=== PATIENT | female | born 1980 | race American Indian/Alaskan Native ===

== ENCOUNTER 2017-03-19 00:37 | Emergency (ER) | payer OTHER ==
[2017-03-19] MEDS ORDERED: CATAPRES PO ONE (01:08)
[2017-03-19] MEDS ORDERED: CATAPRES ONE (01:08)
[2017-03-19 01:40] LABS: Basophils % (Auto) 0.8 % (0.0-1.8); Eosinophils % (Auto) 2.7 % (0.0-4.3); Hematocrit 36.5 % (30.3-42.9); Hemoglobin 12.1 gm/dl (10.1-14.3); Mean Corpuscular HGB Conc 33 % (30-34); Mean Corpuscular Hemoglobin 31 pg (28-32); Mean Corpuscular Volume 93 fl (79-97); Platelet Count 280 K/mm3 (140-440); Red Blood Count 3.93 M/mm3 (3.65-5.03); Red Cell Distribution Width 14.2 % (13.2-15.2); White Blood Count 8.5 K/mm3 (4.5-11.0)
[2017-03-19 01:58] LABS: Anion Gap 19 mmol/L; BUN/Creatinine Ratio 19; Blood Urea Nitrogen 13 mg/dL (7-17); Calcium 8.8 mg/dL (8.4-10.2); Carbon Dioxide 23 mmol/L (22-30); Chloride 103.8 mmol/L (98-107); Glucose 85 mg/dL (65-100); Potassium 3.5 mmol/L (3.6-5.0); Sodium 142 mmol/L (137-145)
[2017-03-19 02:05] LABS: Bilirubin,Urine NEG (Negative); Blood,Urine NEG (Negative); Ketones,Urine NEG (Negative); Leukocyte Esterase,Urine NEG (Negative); Mucus,Urine FEW /HPF; Nitrite,Urine NEG (Negative); Protein,Urine <15 mg/dL mg/dL (Negative); Urobilinogen,Urine < 2.0 mg/dL (<2.0)
--- NOTE | 2017-03-19 04:44 | Cat Scan Report ---
FINAL REPORT PROCEDURE: CT HEAD/BRAIN WO CON TECHNIQUE: Computerized tomography of the head was performed without contrast material. HISTORY: ADRIAN COMPARISON: No prior studies are available for comparison. FINDINGS: Skull and scalp: Normal. Paranasal sinuses: Normal. Ventricles and subarachnoid spaces: Normal. Cerebrum: No evidence of hemorrhage, acute infarction or mass . Cerebellum and brainstem: No evidence of hemorrhage, acute infarction or mass. Vasculature: Normal. Comments: None. IMPRESSION: Normal Examination
--- NOTE | 2017-03-19 09:32 | Emergency Department Report ---
Chief Complaint: Chest Pain Stated Complaint: CHEST PAIN, L SIDED NUMBNESS Time Seen by Provider: 03/19/17 09:29 - HPI History of Present Illness: PT c/o chest pain since yesterday. PT also reports headache. PT states she has a hx of htn and has been compliant with her bp medication - ROS Review of Systems: + chest pian + headache - sob - Exam Vital Signs: Vital Signs 03/19/17 00:51 Temperature 98.6 F Pulse Rate 95 H Respiratory 18 Rate Blood Pressure 216/147 O2 Sat by Pulse 100 Oximetry Physical Exam: PT is alert and appropriate no focal weakness gcs 15 MSE screening note: Focused history and physical exam performed. Due to findings the following was ordered: ED Medical Decision Making - Lab Data Result diagrams: 03/19/17 01:04 03/19/17 01:04 ED Disposition for MSE Condition: Stable Referrals: PRIMARY CARE, [Primary Care Provider] - 3-5 Days
--- NOTE | 2017-03-19 09:48 | XRay Report ---
ROUTINE CHEST, TWO VIEWS: Hypertension; chest pain. PA and lateral views demonstrate the heart and mediastinal contour to be of normal size and shape. The lungs are clear and fully expanded and the soft tissues and bony structures are normal. No interval change to prior study of September 2012. IMPRESSION: Normal study.
--- NOTE | 2017-03-19 11:51 | Emergency Department Report ---
ED Chest Pain HPI - General Chief Complaint: Chest Pain Stated Complaint: CHEST PAIN, L SIDED NUMBNESS Time Seen by Provider: 03/19/17 09:29 Source: patient, RN notes reviewed, old records reviewed Mode of arrival: Ambulatory Limitations: No Limitations - History of Present Illness Initial Comments: This is a 36-year-old female. The patient is previously unknown to this provider. She reports she does not have a primary care doctor, reports that she is not , reports that she has not given within the past 2 months, and reports a past medical history of hypertension. She states she takes atenolol, 25 mg daily, and hydralazine, 50 mg daily. The patient presents to the ER complaining of chest pain, headache, and fingertip numbness. The chest pain started yesterday. The chest pain is not sharp or tearing, it is not sudden or maximal in onset, and it does not radiate to the back, arms or neck. The chest pain is not associated with nausea, vomiting or diaphoresis or shortness of breath. There is no leg pain, there is no leg swelling, no recent trips greater than 4 hours, no recent hospital admissions, does not take oral contraceptives, no recent cocaine use, no recent aspirin use. There is no family history of heart disease, DVT, or dissection that she is aware of. The headache is frontal and throbbing. It started last night. It was not sudden or thunderclap in nature. It did not reach maximal intensity within an hour. It is not the worst headache of her life. She reports that she gets headaches like this one to 2 times per month. She reports worse headache a few months ago, there is no neck pain or neck stiffness, there are no fevers. She describes numbness in her bilateral upper extremity fingertips. Numbness is only in the distal fingertips. It is nowhere else. MD Complaint: chest pain -: Gradual Onset: during rest Pain Location: substernal Pain Radiation: none Severity: mild Severity scale (0 -10): 7 Quality: aching Consistency: intermittent Improves With: rest Worsens With: palpation re: denies: nausea, vomting, diaphoresis, dyspnea, sense of impending doom Aspirin use within the Past 7 Days: (0) No - Related Data On Oral Contraceptives: No Previous Rx's Medication Instructions Recorded Last Taken Type Atenolol [Tenormin] 25 mg PO BID #120 tablet 03/19/17 Unknown Rx Hydralazine HCl [Apresoline TAB] 50 mg PO QDAY #90 tablet 03/19/17 Unknown Rx Allergies Allergy/AdvReac Type Severity Reaction Status Date / Time No Known Allergies Allergy Verified 12/26/13 13:55 Heart Score - HEART Score History: Slightly suspicious EKG: Non-specific Age: < 45 Risk factors: 1-2 risk factors Troponin: < normal limit HEART Score: 2 - Critical Actions Critical Actions: 0-3 pts:0.9-1.7%risk of adverse cardiac event.Candidate for discharge ED Review of Systems ROS: Stated complaint: CHEST PAIN, L SIDED NUMBNESS Other details as noted in HPI Constitutional: denies: diaphoresis, fever, weakness Eyes: denies: eye discharge ENT: denies: epistaxis Respiratory: denies: cough Cardiovascular: chest pain Gastrointestinal: denies: nausea, vomiting Genitourinary: denies: dysuria Musculoskeletal: arthralgia. denies: back pain Skin: denies: lesions Neurological: headache ED Past Medical Hx - Past Medical History Previous Medical History?: Yes Hx Hypertension: Yes Hx Congestive Heart Failure: No Hx Diabetes: No Hx Deep Vein Thrombosis: No Hx Renal Disease: No Hx Sickle Cell Disease: No Hx Seizures: No Hx Asthma: No Hx COPD: No Hx HIV: No - Surgical History Past Surgical History?: Yes Additional Surgical History: 2014 - Social History Smoking Status: Current Every Day Smoker Substance Use Type: Alcohol - Medications Home Medications: Home Medications Medication Instructions Recorded Confirmed Last Taken Type Atenolol [Tenormin] 25 mg PO BID #120 tablet 03/19/17 Unknown Rx Hydralazine HCl [Apresoline TAB] 50 mg PO QDAY #90 tablet 03/19/17 Unknown Rx ED Physical Exam - General Limitations: No Limitations General appearance: alert, in no apparent distress - Head Head exam: Present: atraumatic, normocephalic - Eye Eye exam: Present: normal appearance, PERRL, EOMI, other (visual acuity intact to finger counting, color perception, reading at a close distance). Absent: nystagmus - ENT ENT exam: Present: normal exam, normal orophraynx, mucous membranes moist, normal external ear exam - Neck Neck exam: Present: normal inspection, full ROM. Absent: tenderness, meningismus - Respiratory Respiratory exam: Present: normal lung sounds bilaterally, chest wall tenderness (there is reproducible anterior chest wall tenderness). Absent: respiratory distress, wheezes, rales, rhonchi, stridor - Cardiovascular Cardiovascular Exam: Present: regular rate, normal rhythm, normal heart sounds, other (2+ pulses noted in the bilateral upper and lower extremities.). Absent: bradycardia, tachycardia, irregular rhythm, systolic murmur, diastolic murmur, rubs, gallop - GI/Abdominal GI/Abdominal exam: Present: soft, normal bowel sounds. Absent: distended, tenderness, guarding, rebound, rigid, pulsatile mass - Extremities Exam Extremities exam: Present: normal inspection, full ROM, normal capillary refill , other (there is no palpable cord. There is negative Homans sign.). Absent: pedal edema, joint swelling, calf tenderness - Back Exam Back exam: Present: normal inspection, full ROM. Absent: tenderness, CVA tenderness (R), CVA tenderness (L), muscle spasm, paraspinal tenderness, vertebral tenderness - Neurological Exam Neurological exam: Present: alert, oriented X3, normal gait (there is no pass pointing. There is normal heel to mclean. No visual field cuts on the right confrontation. Walks with a steady gait.), other (Extraocular movements intact. Tongue midline. No facial droop. Facial sensation intact to light touch in the V1, V2, V3 distribution bilaterally. 5 and 5 strength in 4 extremities.. Sensation is intact to light touch in 4 extremities.). Absent: motor sensory deficit - Psychiatric Psychiatric exam: Present: normal affect, normal mood - Skin Skin exam: Present: warm, dry, intact, normal color. Absent: rash ED Course Vital Signs 03/19/17 03/19/17 03/19/17 00:51 01:09 09:31 Temperature 98.6 F 98.4 F Pulse Rate 95 H 95 H 69 Respiratory 18 18 Rate Blood Pressure 216/147 216/147 Blood Pressure 178/126 [Right] O2 Sat by Pulse 100 100 Oximetry 03/19/17 03/19/17 03/19/17 09:33 09:38 12:16 Temperature 98.4 F Pulse Rate 69 Respiratory 18 16 Rate Blood Pressure 178/126 178/126 Blood Pressure [Right] O2 Sat by Pulse 100 Oximetry 03/19/17 13:04 Temperature Pulse Rate 71 Respiratory 18 Rate Blood Pressure Blood Pressure 182/128 [Right] O2 Sat by Pulse 100 Oximetry - Reevaluation(s) Reevaluation #1: 03/19/17 18:52 Patient playing on a cellular telephone in the department, no distress, can follow-up as an outpatient. DEVIN score - Devin Score Age > 65: (0) No Aspirin use within the Past 7 Days: (0) No 3 or more CAD Risk Factors: (0) No 2 or more Angina events in past 24 hrs: (0) No Known CAD with more than 50% Stenosis: (0) No Elevated Cardiac Markers: (0) No ST Deviation Greater than 0.5mm: (0) No DEVIN Score: 0 ED Medical Decision Making - Lab Data Result diagrams: 03/19/17 01:04 03/19/17 01:04 Vital Signs 03/19/17 03/19/17 03/19/17 00:51 01:09 09:31 Temperature 98.6 F 98.4 F Pulse Rate 95 H 95 H 69 Respiratory 18 18 Rate Blood Pressure 216/147 216/147 Blood Pressure 178/126 [Right] O2 Sat by Pulse 100 100 Oximetry 03/19/17 09:33 Temperature 98.4 F Pulse Rate 69 Respiratory 18 Rate Blood Pressure 178/126 Blood Pressure [Right] O2 Sat by Pulse 100 Oximetry Lab Results 03/19/17 03/19/17 03/19/17 Range/Units 01:04 01:04 01:04 WBC 8.5 (4.5-11.0) K/mm3 RBC 3.93 (3.65-5.03) M/mm3 Hgb 12.1 (10.1-14.3) gm/dl Hct 36.5 (30.3-42.9) % MCV 93 (79-97) fl MCH 31 (28-32) pg MCHC 33 (30-34) % RDW 14.2 (13.2-15.2) % Plt Count 280 (140-440) K/mm3 Lymph % (Auto) 40.1 H (13.4-35.0) % [place] % (Auto) 8.3 H (0.0-7.3) % Eos % (Auto) 2.7 (0.0-4.3) % Baso % (Auto) 0.8 (0.0-1.8) % Lymph # 3.4 (1.2-5.4) K/mm3 [place] # 0.7 (0.0-0.8) K/mm3 Eos # 0.2 (0.0-0.4) K/mm3 Baso # 0.1 (0.0-0.1) K/mm3 Seg Neutrophils % 48.1 (40.0-70.0) % Seg Neutrophils # 4.1 (1.8-7.7) K/mm3 Sodium 142 (137-145) mmol/L Potassium 3.5 L (3.6-5.0) mmol/L Chloride 103.8 (98-107) mmol/L Carbon Dioxide 23 (22-30) mmol/L Anion Gap 19 mmol/L BUN 13 (7-17) mg/dL Creatinine 0.7 (0.7-1.2) mg/dL Estimated GFR > 60 ml/min BUN/Creatinine Ratio 19 % Glucose 85 (65-100) mg/dL Lactic Acid 0.90 (0.7-2.0) mmol/L Calcium 8.8 (8.4-10.2) mg/dL Troponin T < 0.010 (0.00-0.029) ng/mL NT-Pro-B Natriuret Pep (0-450) pg/mL HCG, Qual (Negative) Urine Color (Yellow) Urine Turbidity (Clear) Urine pH (5.0-7.0) Ur Specific [place] (1.003-1.030) Urine Protein (Negative) mg/dL Urine Glucose (UA) (Negative) mg/dL Urine Ketones (Negative) mg/dL Urine Blood (Negative) Urine Nitrite (Negative) Urine Bilirubin (Negative) Urine Urobilinogen (<2.0) mg/dL Ur Leukocyte Esterase (Negative) Urine WBC (Auto) (0.0-6.0) /HPF Urine RBC (Auto) (0.0-6.0) /HPF U Epithel Cells (Auto) (0-13.0) /HPF Urine Mucus /HPF 03/19/17 03/19/17 03/19/17 Range/Units 01:04 03:51 08:42 WBC (4.5-11.0) K/mm3 RBC (3.65-5.03) M/mm3 Hgb (10.1-14.3) gm/dl Hct (30.3-42.9) % MCV (79-97) fl MCH (28-32) pg MCHC (30-34) % RDW (13.2-15.2) % Plt Count (140-440) K/mm3 Lymph % (Auto) (13.4-35.0) % [place] % (Auto) (0.0-7.3) % Eos % (Auto) (0.0-4.3) % Baso % (Auto) (0.0-1.8) % Lymph # (1.2-5.4) K/mm3 [place] # (0.0-0.8) K/mm3 Eos # (0.0-0.4) K/mm3 Baso # (0.0-0.1) K/mm3 Seg Neutrophils % (40.0-70.0) % Seg Neutrophils # (1.8-7.7) K/mm3 Sodium (137-145) mmol/L Potassium (3.6-5.0) mmol/L Chloride (98-107) mmol/L Carbon Dioxide (22-30) mmol/L Anion Gap mmol/L BUN (7-17) mg/dL Creatinine (0.7-1.2) mg/dL Estimated GFR ml/min BUN/Creatinine Ratio % Glucose (65-100) mg/dL Lactic Acid (0.7-2.0) mmol/L Calcium (8.4-10.2) mg/dL Troponin T < 0.010 < 0.010 (0.00-0.029) ng/mL NT-Pro-B Natriuret Pep (0-450) pg/mL HCG, Qual Negative (Negative) Urine Color (Yellow) Urine Turbidity (Clear) Urine pH (5.0-7.0) Ur Specific [place] (1.003-1.030) Urine Protein (Negative) mg/dL Urine Glucose (UA) (Negative) mg/dL Urine Ketones (Negative) mg/dL Urine Blood (Negative) Urine Nitrite (Negative) Urine Bilirubin (Negative) Urine Urobilinogen (<2.0) mg/dL Ur Leukocyte Esterase (Negative) Urine WBC (Auto) (0.0-6.0) /HPF Urine RBC (Auto) (0.0-6.0) /HPF U Epithel Cells (Auto) (0-13.0) /HPF Urine Mucus /HPF 03/19/17 03/19/17 Range/Units 08:42 Unknown WBC (4.5-11.0) K/mm3 RBC (3.65-5.03) M/mm3 Hgb (10.1-14.3) gm/dl Hct (30.3-42.9) % MCV (79-97) fl MCH (28-32) pg MCHC (30-34) % RDW (13.2-15.2) % Plt Count (140-440) K/mm3 Lymph % (Auto) (13.4-35.0) % [place] % (Auto) (0.0-7.3) % Eos % (Auto) (0.0-4.3) % Baso % (Auto) (0.0-1.8) % Lymph # (1.2-5.4) K/mm3 [place] # (0.0-0.8) K/mm3 Eos # (0.0-0.4) K/mm3 Baso # (0.0-0.1) K/mm3 Seg Neutrophils % (40.0-70.0) % Seg Neutrophils # (1.8-7.7) K/mm3 Sodium (137-145) mmol/L Potassium (3.6-5.0) mmol/L Chloride (98-107) mmol/L Carbon Dioxide (22-30) mmol/L Anion Gap mmol/L BUN (7-17) mg/dL Creatinine (0.7-1.2) mg/dL Estimated GFR ml/min BUN/Creatinine Ratio % Glucose (65-100) mg/dL Lactic Acid (0.7-2.0) mmol/L Calcium (8.4-10.2) mg/dL Troponin T (0.00-0.029) ng/mL NT-Pro-B Natriuret Pep 73.89 (0-450) pg/mL HCG, Qual (Negative) Urine Color Yellow (Yellow) Urine Turbidity Clear (Clear) Urine pH 7.0 (5.0-7.0) Ur Specific [place] 1.024 (1.003-1.030) Urine Protein <15 mg/dl (Negative) mg/dL Urine Glucose (UA) Neg (Negative) mg/dL Urine Ketones Neg (Negative) mg/dL Urine Blood Neg (Negative) Urine Nitrite Neg (Negative) Urine Bilirubin Neg (Negative) Urine Urobilinogen < 2.0 (<2.0) mg/dL Ur Leukocyte Esterase Neg (Negative) Urine WBC (Auto) 1.0 (0.0-6.0) /HPF Urine RBC (Auto) 1.0 (0.0-6.0) /HPF U Epithel Cells (Auto) 6.0 (0-13.0) /HPF Urine Mucus Few /HPF - EKG Data -: EKG Interpreted by Wy EKG shows normal: sinus rhythm Rate: normal - EKG Data 03/19/17 12:18 EKG #1 demonstrates normal sinus, 79 beats per minute, high left ventricular voltage, borderline left axis, not morphologically consistent with STEMI. EKG #2 demonstrates sinus, 65 bpm, high left ventricular voltage, appears unchanged when compared to prior, both EKGs appear unchanged when compared to prior EKG from 08/20/2016, with the exception of the transient left axis deviation on the initial EKG. - Radiology Data Radiology results: report reviewed, image reviewed Noncontrast CT scan of the brain is negative. X-ray of the chest is negative. - Medical Decision Making Differential diagnosis: Migraine headache, tension headache, cluster headache, intracranial hemorrhage, acute coronary syndrome, costochondritis, pneumonia, GERD/reflux Assessment and plan: 36-year-old female with headache, chest wall pain, and fingertip numbness. In terms of the patient's headache, does not have historical or physical exam features to suggest subarachnoid hemorrhage. Has a GCS of 15, with an NIH score of 0, noncontrast CT scan of the brain exclude spontaneous intracranial hemorrhage. Fingertip numbness is bilateral, not anatomically consistent with stroke distribution, has an NIH score of 0, GCS of 15. This can be further followed up and evaluated as an outpatient. Chest pain is reproducible, atypical, no pulmonary embolus or DVT risk factors, low risk by well's criteria, perc negative, low risk by DEVIN score, low risk by heart score, troponins negative 3, EKG demonstrates high left ventricular voltage, serial EKGs appeared unchanged when compared to prior, extensive discussion had with patient regarding options for acute coronary syndrome risk stratification. Patient understands that she is at low risk for major adverse cardiac event. She prefers to follow up as an outpatient. She is reliable, and I think that this plan of care is reasonable. Critical care attestation.: If time is entered above; I have spent that time in minutes in the direct care of this critically ill patient, excluding procedure time. ED Disposition Clinical Impression: Chest wall pain, Elevated blood pressure reading Disposition: TO HOME OR SELFCARE Is pt being admited?: No Does the pt Need Aspirin: No Condition: Stable Instructions: Chest Pain (ED), Costochondritis (ED) Additional Instructions: Continue current outpatient medications. Follow up with any of the listed rn cardiology within the next 3-5 days. Make certain to take blood pressure medications. Blood pressure was very elevated today. Long-term complications of hypertension and elevated blood pressure include stroke, heart attack, disability, , paralysis, loss of quality of life. Return to the ER right away with new pain, worsening pain, migration of pain, fevers, chills, lethargy, irritability, projectile vomiting, change in mental status, inability to tolerate liquid feeds. Take aspirin, 81 mg daily, this can be purchased over -the-counter. When contacting cardiology, call the following phone number: [phone]; inform the staff that Dr. Pena is supposed to see you later on this week for outpatient cardiology evaluation, and the office staff should be able to accommodate the patient with an appointment within the next week. Prescriptions: Atenolol [Tenormin] 25 mg PO BID #120 tablet Hydralazine HCl [Apresoline TAB] 50 mg PO QDAY #90 tablet Referrals: [facility] [Provider Group] - 3-5 Days [facility] [Provider Group] - 3-5 Days PRIMARY CAREMD [Primary Care Provider] - 3-5 Days YUE PEDERSEN MD [Staff Physician] - 3-5 Days Forms: Work/School Release Form(ED)
[2017-03-19] MEDS ORDERED: TORADOL IM ONE (12:01)
[2017-03-19 13:05] VITALS: BP 182/128
== END 2017-03-19 13:04 | disposition home or self-care (01) ==
LOC: ED 00:37
DX: R07.2 Precordial pain (principal); I10 Essential (primary) hypertension; R20.0 Anesthesia of skin; R51 Headache; J45.909 Unspecified asthma, uncomplicated; F17.200 Nicotine dependence, unspecified, uncomplicated
CPT/HCPCS: 36415; 70450; 71020; 80048; 81001; 82140; 83880; 84484; 84703; 85025; 93005; 93010; 96372; 99285; J1885

== ENCOUNTER 2017-05-22 02:27 | Inpatient (IN) | payer OTHER ==
[2017-05-22 03:24] LABS: Basophils % (Auto) 0.8 % (0.0-1.8); Eosinophils % (Auto) 2.5 % (0.0-4.3); Mean Corpuscular HGB Conc 33 % (30-34); Mean Corpuscular Hemoglobin 30 pg (28-32); Mean Corpuscular Volume 91 fl (79-97); Platelet Count 307 K/mm3 (140-440); Red Blood Count 3.94 M/mm3 (3.65-5.03); Red Cell Distribution Width 13.7 % (13.2-15.2)
--- NOTE | 2017-05-22 03:28 | Cat Scan Report ---
FINAL REPORT PROCEDURE: CT HEAD/BRAIN WO CON TECHNIQUE: Computerized tomography of the head was performed without contrast material. HISTORY: ADRIAN with elevated BP COMPARISON: No prior studies are available for comparison. FINDINGS: Skull and scalp: Normal. Paranasal sinuses: Normal. Ventricles and subarachnoid spaces: Normal. Cerebrum: No evidence of hemorrhage, acute infarction or mass . Cerebellum and brainstem: No evidence of hemorrhage, acute infarction or mass. Vasculature: Normal. Comments: None. IMPRESSION: Normal Examination
[2017-05-22 03:30] LABS: Anion Gap 18 mmol/L; BUN/Creatinine Ratio 22; Blood Urea Nitrogen 13 mg/dL (7-17); Calcium 8.9 mg/dL (8.4-10.2); Carbon Dioxide 24 mmol/L (22-30); Glucose 84 mg/dL (65-100); Potassium 3.3 mmol/L (3.6-5.0); Sodium 140 mmol/L (137-145)
[2017-05-22] MEDS ORDERED: APRESOLINE IM ONE (04:38)
--- NOTE | 2017-05-22 07:51 | Emergency Department Report ---
ED General Adult HPI - General Chief complaint: Headache Stated complaint: HEADACHES Time Seen by Provider: 05/22/17 07:38 Source: patient, RN notes reviewed Mode of arrival: Ambulatory Limitations: No Limitations - History of Present Illness Initial comments: This is a 36-year-old female who has been previously evaluated by this provider. She reports that she still does not have a local primary care doctor , has a history of hypertension, reports that she is not , and reports that she has not had a baby or delivered in the past 2 months. On 03/19/2017, the patient was evaluated for nonspecific neurologic symptoms and chest pain. She was exquisitely instructed in her discharge instructions to follow up with outpatient cardiology. The patient has not followed up with outpatient cardiology. The patient presents today with multiple complaints. Her first complaint is chest pain. The chest pain is central. It does not radiates to the back, arms and neck. There is no vomiting, there is no diaphoresis, there is no shortness of breath. There is no There are no pulmonary embolus or DVT risk factors. The patient does not take control tablets The patient's second complaint is left-sided headache, and left upper extremity numbness, left lower extremity numbness. This is been going on for the past day or 2. Headache is not sudden or thunderclap in nature. It did not reach maximal intensity within an hour. Patient reports that this is more intense than prior headaches. However, she reports chronic and frequent headaches. -: Gradual Location: head, chest, left, upper extremity, lower extremity Quality: aching Consistency: intermittent Improves with: none Worsens with: none Associated Symptoms: chest pain, headaches - Related Data Previous Rx's Medication Instructions Recorded Last Taken Type Atenolol [Tenormin] 25 mg PO BID #120 tablet 03/19/17 Unknown Rx Allergies Allergy/AdvReac Type Severity Reaction Status Date / Time No Known Allergies Allergy Verified 12/26/13 13:55 ED Review of Systems ROS: Stated complaint: HEADACHES Other details as noted in HPI Constitutional: denies: fever Eyes: denies: eye discharge ENT: denies: epistaxis Respiratory: denies: cough Cardiovascular: chest pain Gastrointestinal: denies: vomiting Genitourinary: as per HPI Musculoskeletal: denies: back pain Neurological: headache, numbness, paresthesias Psychiatric: anxiety ED Past Medical Hx - Past Medical History Previous Medical History?: Yes Hx Hypertension: Yes Hx Congestive Heart Failure: No Hx Diabetes: No Hx Deep Vein Thrombosis: No Hx Renal Disease: No Hx Sickle Cell Disease: No Hx Seizures: No Hx Asthma: No Hx COPD: No Hx HIV: No - Surgical History Past Surgical History?: Yes Additional Surgical History: 2010, 2014, tubaligation - Social History Smoking Status: Current Every Day Smoker Substance Use Type: None - Medications Home Medications: Home Medications Medication Instructions Recorded Confirmed Last Taken Type Atenolol [Tenormin] 25 mg PO BID #120 tablet 03/19/17 05/22/17 Unknown Rx ED Physical Exam - General Limitations: No Limitations General appearance: alert, in no apparent distress - Head Head exam: Present: atraumatic, normocephalic - Eye Eye exam: Present: normal appearance, EOMI, other (visual acuity intact to finger counting, color perception, reading at a close distance). Absent: nystagmus - ENT ENT exam: Present: normal exam, normal orophraynx, mucous membranes moist, normal external ear exam - Neck Neck exam: Present: normal inspection, full ROM. Absent: tenderness, meningismus - Respiratory Respiratory exam: Present: normal lung sounds bilaterally, chest wall tenderness. Absent: respiratory distress - Cardiovascular Cardiovascular Exam: Present: regular rate, normal rhythm, normal heart sounds. Absent: systolic murmur, diastolic murmur, rubs, gallop - GI/Abdominal GI/Abdominal exam: Present: soft, normal bowel sounds. Absent: distended, tenderness, guarding, rebound, rigid, pulsatile mass - Extremities Exam Extremities exam: Present: normal inspection, full ROM, normal capillary refill. Absent: pedal edema, joint swelling, calf tenderness - Back Exam Back exam: Present: normal inspection, full ROM. Absent: tenderness, paraspinal tenderness, vertebral tenderness - Neurological Exam Neurological exam: Present: alert, oriented X3, CN II-XII intact, normal gait, other (Extraocular movements intact. Tongue midline. No facial droop. Facial sensation intact to light touch in the V1, V2, V3 distribution bilaterally. 5 and 5 strength in 4 extremities.. Sensation is intact to light touch in 4 extremities.). Absent: motor sensory deficit - Psychiatric Psychiatric exam: Present: normal affect, normal mood - Skin Skin exam: Present: warm, dry, intact, normal color. Absent: rash ED Course Vital Signs 05/22/17 05/22/17 05/22/17 02:30 02:40 03:00 Temperature 98.0 F 98 F Pulse Rate 99 H 99 H Respiratory 18 18 18 Rate Blood Pressure 207/137 207/137 Blood Pressure [Left] O2 Sat by Pulse 100 100 99 Oximetry 05/22/17 05/22/17 05/22/17 03:24 03:31 03:45 Temperature Pulse Rate Respiratory Rate Blood Pressure 205/128 205/128 205/128 Blood Pressure [Left] O2 Sat by Pulse 100 99 97 Oximetry 05/22/17 05/22/17 05/22/17 04:00 04:15 04:31 Temperature Pulse Rate Respiratory Rate Blood Pressure 189/119 189/119 189/119 Blood Pressure [Left] O2 Sat by Pulse 99 97 99 Oximetry 05/22/17 05/22/17 05/22/17 04:45 04:53 05:17 Temperature Pulse Rate 85 Respiratory Rate Blood Pressure 189/119 189/119 189/119 Blood Pressure [Left] O2 Sat by Pulse 99 100 Oximetry 05/22/17 05/22/17 05/22/17 05:30 05:45 06:00 Temperature Pulse Rate Respiratory Rate Blood Pressure 168/99 168/99 166/94 Blood Pressure [Left] O2 Sat by Pulse 100 100 98 Oximetry 05/22/17 05/22/17 05/22/17 06:15 06:31 06:45 Temperature Pulse Rate Respiratory Rate Blood Pressure 190/120 140/92 140/92 Blood Pressure [Left] O2 Sat by Pulse 100 94 99 Oximetry 05/22/17 05/22/17 05/22/17 07:00 07:15 07:30 Temperature Pulse Rate 88 87 Respiratory 21 24 Rate Blood Pressure 100/56 140/92 134/86 Blood Pressure [Left] O2 Sat by Pulse 98 100 99 Oximetry 05/22/17 05/22/17 05/22/17 07:45 08:00 08:15 Temperature Pulse Rate 91 H 95 H 95 H Respiratory 18 19 22 Rate Blood Pressure 134/86 147/96 147/96 Blood Pressure [Left] O2 Sat by Pulse 100 100 100 Oximetry 05/22/17 05/22/17 05/22/17 08:30 08:45 09:00 Temperature Pulse Rate 98 H 99 H 86 Respiratory 14 18 16 Rate Blood Pressure 153/106 147/96 162/106 Blood Pressure [Left] O2 Sat by Pulse 100 100 100 Oximetry 05/22/17 05/22/17 05/22/17 09:15 09:30 09:45 Temperature Pulse Rate 93 H 89 87 Respiratory 27 H 20 27 H Rate Blood Pressure 162/106 172/115 172/115 Blood Pressure [Left] O2 Sat by Pulse 99 100 100 Oximetry 05/22/17 05/22/17 05/22/17 10:00 10:15 10:31 Temperature Pulse Rate 87 84 93 H Respiratory 12 25 H 22 Rate Blood Pressure 170/109 170/109 177/102 Blood Pressure [Left] O2 Sat by Pulse 99 100 98 Oximetry 05/22/17 05/22/17 05/22/17 13:02 14:23 14:29 Temperature Pulse Rate 90 107 H Respiratory 18 Rate Blood Pressure 207/115 170/109 Blood Pressure 168/103 [Left] O2 Sat by Pulse 100 100 Oximetry - Reevaluation(s) Reevaluation #1: 05/22/17 09:25 Differential diagnosis, including limited to: Migraine headache, tension headache, cluster headache, posterior reversible encephalopathy syndrome, Acute coronary syndrome, transient ischemic attack, radiculopathy Assessment and plan: 36-year-old female with recurrent chest pain, patient has not followed up that she was specifically instructed to. The patient is obviously not reliable. No pulmonary embolus or DVT risk factors, low risk by well's criteria, has equal pulses in the upper and lower extremities, x-ray chest is unremarkable, doubt aortic catastrophe. Today, her neurologic symptoms are different than when I previously evaluated her, so transient ischemic attack also a possibility. Patient was initially hypertensive, and was given intramuscular hydralazine which was ordered by Dr. Galvan overnight. Given multiple complaints, vascular risk factors, lack of reliability, patient not suitable for outpatient follow-up, and she will be admitted for acute coronary syndrome risk stratification, and transient ischemic attack evaluation. Hospital physician has been paged 2, she indicates that she is going to call me back when she can take the admission. 05/22/17 09:33 Reevaluation #2: 05/22/17 09:45 Case is presented to the hospital nurse practitioner, Jason Barnett; patient accepted to the medical service. ED Medical Decision Making - Lab Data Result diagrams: 05/22/17 02:59 05/22/17 02:59 Vital Signs 05/22/17 05/22/17 05/22/17 02:30 02:40 03:00 Temperature 98.0 F 98 F Pulse Rate 99 H 99 H Respiratory 18 18 18 Rate Blood Pressure 207/137 207/137 O2 Sat by Pulse 100 100 99 Oximetry 05/22/17 05/22/17 05/22/17 03:24 03:31 03:45 Temperature Pulse Rate Respiratory Rate Blood Pressure 205/128 205/128 205/128 O2 Sat by Pulse 100 99 97 Oximetry 05/22/17 05/22/17 05/22/17 04:00 04:15 04:31 Temperature Pulse Rate Respiratory Rate Blood Pressure 189/119 189/119 189/119 O2 Sat by Pulse 99 97 99 Oximetry 05/22/17 05/22/17 05/22/17 04:45 04:53 05:17 Temperature Pulse Rate 85 Respiratory Rate Blood Pressure 189/119 189/119 189/119 O2 Sat by Pulse 99 100 Oximetry 05/22/17 05/22/17 05/22/17 05:30 05:45 06:00 Temperature Pulse Rate Respiratory Rate Blood Pressure 168/99 168/99 166/94 O2 Sat by Pulse 100 100 98 Oximetry 05/22/17 05/22/17 05/22/17 06:15 06:31 06:45 Temperature Pulse Rate Respiratory Rate Blood Pressure 190/120 140/92 140/92 O2 Sat by Pulse 100 94 99 Oximetry 05/22/17 05/22/17 05/22/17 07:00 07:15 07:30 Temperature Pulse Rate 88 87 Respiratory 21 24 Rate Blood Pressure 100/56 140/92 134/86 O2 Sat by Pulse 98 100 99 Oximetry 05/22/17 05/22/17 05/22/17 07:45 08:00 08:15 Temperature Pulse Rate 91 H 95 H 95 H Respiratory 18 19 22 Rate Blood Pressure 134/86 147/96 147/96 O2 Sat by Pulse 100 100 100 Oximetry 05/22/17 05/22/17 05/22/17 08:30 08:45 09:00 Temperature Pulse Rate 98 H 99 H 86 Respiratory 14 18 16 Rate Blood Pressure 153/106 147/96 162/106 O2 Sat by Pulse 100 100 100 Oximetry 05/22/17 09:15 Temperature Pulse Rate 93 H Respiratory 27 H Rate Blood Pressure 162/106 O2 Sat by Pulse 99 Oximetry Labs 05/22/17 05/22/17 05/22/17 02:59 02:59 05:30 WBC 8.0 RBC 3.94 Hgb 12.0 Hct 36.0 MCV 91 MCH 30 MCHC 33 RDW 13.7 Plt Count 307 Lymph % (Auto) 39.4 H Gilliam % (Auto) 9.7 H Eos % (Auto) 2.5 Baso % (Auto) 0.8 Lymph # 3.2 Gilliam # 0.8 Eos # 0.2 Baso # 0.1 Seg Neutrophils % 47.6 Seg Neutrophils # 3.8 Sodium 140 Potassium 3.3 L Chloride 101.0 Carbon Dioxide 24 Anion Gap 18 BUN 13 Creatinine 0.6 L Estimated GFR > 60 BUN/Creatinine Ratio 22 Glucose 84 Calcium 8.9 Troponin T < 0.010 Urine Color Yellow Urine Turbidity Clear Urine pH 6.0 Ur Specific [place] 1.021 Urine Protein <15 mg/dl Urine Glucose (UA) Neg Urine Ketones Neg Urine Blood Lg Urine Nitrite Neg Urine Bilirubin Neg Urine Urobilinogen < 2.0 Ur Leukocyte Esterase Neg Urine WBC (Auto) 2.0 Urine RBC (Auto) 116.0 U Epithel Cells (Auto) 1.0 Urine Bacteria (Auto) 1+ Urine Mucus Few 05/22/17 05/22/17 05:35 08:46 WBC RBC Hgb Hct MCV MCH MCHC RDW Plt Count Lymph % (Auto) Gilliam % (Auto) Eos % (Auto) Baso % (Auto) Lymph # Gilliam # Eos # Baso # Seg Neutrophils % Seg Neutrophils # Sodium Potassium Chloride Carbon Dioxide Anion Gap BUN Creatinine Estimated GFR BUN/Creatinine Ratio Glucose Calcium Troponin T < 0.010 < 0.010 Urine Color Urine Turbidity Urine pH Ur Specific [place] Urine Protein Urine Glucose (UA) Urine Ketones Urine Blood Urine Nitrite Urine Bilirubin Urine Urobilinogen Ur Leukocyte Esterase Urine WBC (Auto) Urine RBC (Auto) U Epithel Cells (Auto) Urine Bacteria (Auto) Urine Mucus - EKG Data -: EKG Interpreted by Me - EKG Data 05/22/17 09:35 EKG demonstrates normal sinus, 84 bpm, left axis deviation, left anterior fascicular block, left ventricular hypertrophy, abnormal EKG, not morphologically consistent with ST elevation myocardial infarction, I repeated EKG is mostly unchanged, with the exception of resolution of left axis deviation - Radiology Data Radiology results: report reviewed, image reviewed X-ray of the chest is negative. Noncontrast CT scan of the brain is negative. Critical care attestation.: If time is entered above; I have spent that time in minutes in the direct care of this critically ill patient, excluding procedure time. ED Disposition Clinical Impression: Hypertensive urgency, Chest pain, TIA (transient ischemic attack) Disposition: OP ADMIT IP TO THIS HOSP Is pt being admited?: Yes Does the pt Need Aspirin: Yes Condition: Good
[2017-05-22 08:01] LABS: Bacteria,Urine 1+ /HPF (Negative); Bilirubin,Urine NEG (Negative); Blood,Urine LG (Negative); Ketones,Urine NEG (Negative); Leukocyte Esterase,Urine NEG (Negative); Mucus,Urine FEW /HPF; Nitrite,Urine NEG (Negative); Protein,Urine <15 mg/dL mg/dL (Negative); Urobilinogen,Urine < 2.0 mg/dL (<2.0)
--- NOTE | 2017-05-22 08:22 | XRay Report ---
ROUTINE CHEST, TWO VIEWS: HISTORY: Chest pain, shortness of breath. The trachea, heart, mediastinal contour, lung burkett and bony thorax are unremarkable. No change since 03/19/17. IMPRESSION: Unremarkable chest x-ray.
[2017-05-22] MEDS ORDERED: REGLAN IV ONE (09:36)
[2017-05-22] MEDS ORDERED: BENADRYL IV ONE (09:36)
[2017-05-22] MEDS ORDERED: BABY ASPIRIN PO ONE (09:36)
[2017-05-22] MEDS ORDERED: MILK OF MAGNESIA PO PRN (10:12)
[2017-05-22] MEDS ORDERED: TYLENOL PO PRN (10:12)
[2017-05-22] MEDS ORDERED: DULCOLAX PR PRN (10:12)
[2017-05-22] MEDS ORDERED: NITROSTAT SL PRN (10:13)
[2017-05-22] MEDS ORDERED: APRESOLINE IV PRN (10:18)
--- NOTE | 2017-05-22 10:22 | History and Physical Report ---
<MEIR PINO - Last Filed: 05/22/17 15:58> History of Present Illness Date of examination: 05/22/17 Date of admission: 05/22/2017 Chief complaint: Headache and chest pain History of present illness: Patient is a 36 -year-old female with past medical history of hypertension who presents to emergency department for complaining of midsternal chest pain and headache. Patient stated that initial it started with left side headache 4 days ago but last night her headache got worst to the point she couldn't sleep. She got worried and comes to the emergency department. While in the ED waiting to be seen patient developed midsternal chest pain. The pain was located over her substernal somewhat in the left epigastric area. She describes the quality as a chest tightness/pressure with radiation to the left shoulder and arm. The painful episodes did not increase in intensity or severity during this time. The patient rates her pain level 9/10 at present time. Patient stated that she has been nauseated all morning. Patient reported begin lightheaded shortness of breath, dizziness and heart palpitations, diaphoresis including feeling clammy. There No aggravating factors. Patient also experienced left upper extremity numbness, left lower extremity numbness. Past History Past Medical History: hypertension Past Surgical History: Other ( 2010, 2015, tubaligation) Social history: smoking Family history: hypertension Medications and Allergies Allergies Allergy/AdvReac Type Severity Reaction Status Date / Time No Known Allergies Allergy Verified 12/26/13 13:55 Home Medications Medication Instructions Recorded Confirmed Last Taken Type Atenolol [Tenormin] 25 mg PO BID #120 tablet 03/19/17 05/22/17 Unknown Rx hydrALAZINE [Apresoline TAB] 50 mg PO DAILY 05/22/17 05/22/17 Unknown History Active Meds: Active Medications Acetaminophen (Tylenol) 650 mg PO Q4H PRN PRN Reason: Pain MILD(1-3)/Fever >100.5/ADRIAN Amlodipine Besylate (Norvasc) 10 mg PO QDAY SUNITHA Aspirin (Baby Aspirin) 81 mg PO QDAY SUNITHA Atenolol (Tenormin) 25 mg PO BID SUNITHA Bisacodyl (Dulcolax) 10 mg PA QDAY PRN PRN Reason: Constipation unrelieved by MOM Enoxaparin Sodium (Lovenox) 40 mg SUB-Q QDAY SUNITHA Hydralazine HCl (Apresoline) 20 mg IV Q4H PRN PRN Reason: Blood Pressure Magnesium Hydroxide (Milk Of Magnesia) 30 ml PO Q4H PRN PRN Reason: Constipation Morphine Sulfate (Morphine) 2 mg IV Q4H PRN PRN Reason: Pain, Moderate (4-6) Nitroglycerin (Nitrostat) 0.4 mg SL .Q5MIN PRN PRN Reason: Chest Pain Review of Systems Constitutional: no weight loss, no weight gain, no fever Ears, nose, mouth and throat: no decreased hearing, no nose pain, no nasal discharge, no sinus pressure Breasts: no change in shape, no swelling, no mass Cardiovascular: chest pain, lightheadedness, shortness of breath Respiratory: no excessive sputum, no hemoptysis, no shortness of breath Gastrointestinal: nausea, no diarrhea, no constipation, no change in bowel habits Genitourinary Female: no menorrhagia, no dysuria, no urinary frequency, no stress incontinence Musculoskeletal: no shooting arm pain, no arm numbness/tingling, no low back pain, no shooting leg pain Integumentary: no sores, no wounds, no jaundice Neurological: numbness, tingling Psychiatric: no change in sleep habits, no change in appetite, no change in libido, no suicidal ideation Endocrine: no cold intolerance, no heat intolerance, no polyphagia, no excessive thirst Hematologic/Lymphatic: no easy bruising, no easy bleeding Allergic/Immunologic: no urticaria, no allergic rhinitis Exam - Constitutional Vitals: Temp Pulse Resp BP Pulse Ox 98 F 93 H 27 H 162/106 99 05/22/17 02:40 05/22/17 09:15 05/22/17 09:15 05/22/17 09:15 05/22/17 09:15 General appearance: Present: no acute distress - EENT Eyes: Present: PERRL ENT: hearing intact - Neck Neck: Present: supple - Respiratory Respiratory effort: normal Respiratory: bilateral: CTA - Cardiovascular Rhythm: regular Heart Sounds: Present: S1 & S2 - Abdominal General gastrointestinal: Present: soft, non-tender Female genitourinary: Present: deferred - Rectal Rectal Exam: deferred - Integumentary Integumentary: Present: clear, warm, dry - Musculoskeletal Musculoskeletal: strength equal bilaterally - Psychiatric Psychiatric: appropriate mood/affect - Neurologic Neurologic: CNII-XII intact - Allied Health Allied health notes reviewed: nursing Results - Labs CBC & Chem 7: 05/22/17 02:59 05/22/17 02:59 Labs: Laboratory Last Values WBC 8.0 K/mm3 (4.5-11.0) 05/22/17 02:59 RBC 3.94 M/mm3 (3.65-5.03) 05/22/17 02:59 Hgb 12.0 gm/dl (10.1-14.3) 05/22/17 02:59 Hct 36.0 % (30.3-42.9) 05/22/17 02:59 MCV 91 fl (79-97) 05/22/17 02:59 MCH 30 pg (28-32) 05/22/17 02:59 MCHC 33 % (30-34) 05/22/17 02:59 RDW 13.7 % (13.2-15.2) 05/22/17 02:59 Plt Count 307 K/mm3 (140-440) 05/22/17 02:59 Lymph % (Auto) 39.4 % (13.4-35.0) H 05/22/17 02:59 [place] % (Auto) 9.7 % (0.0-7.3) H 05/22/17 02:59 Eos % (Auto) 2.5 % (0.0-4.3) 05/22/17 02:59 Baso % (Auto) 0.8 % (0.0-1.8) 05/22/17 02:59 Lymph # 3.2 K/mm3 (1.2-5.4) 05/22/17 02:59 [place] # 0.8 K/mm3 (0.0-0.8) 05/22/17 02:59 Eos # 0.2 K/mm3 (0.0-0.4) 05/22/17 02:59 Baso # 0.1 K/mm3 (0.0-0.1) 05/22/17 02:59 Seg Neutrophils % 47.6 % (40.0-70.0) 05/22/17 02:59 Seg Neutrophils # 3.8 K/mm3 (1.8-7.7) 05/22/17 02:59 Sodium 140 mmol/L (137-145) 05/22/17 02:59 Potassium 3.3 mmol/L (3.6-5.0) L 05/22/17 02:59 Chloride 101.0 mmol/L (98-107) 05/22/17 02:59 Carbon Dioxide 24 mmol/L (22-30) 05/22/17 02:59 Anion Gap 18 mmol/L 05/22/17 02:59 BUN 13 mg/dL (7-17) 05/22/17 02:59 Creatinine 0.6 mg/dL (0.7-1.2) L 05/22/17 02:59 Estimated GFR > 60 ml/min 05/22/17 02:59 BUN/Creatinine Ratio 22 % 05/22/17 02:59 Glucose 84 mg/dL (65-100) 05/22/17 02:59 Calcium 8.9 mg/dL (8.4-10.2) 05/22/17 02:59 Troponin T < 0.010 ng/mL (0.00-0.029) 05/22/17 08:46 Urine Color Yellow (Yellow) 05/22/17 05:30 Urine Turbidity Clear (Clear) 05/22/17 05:30 Urine pH 6.0 (5.0-7.0) 05/22/17 05:30 Ur Specific [place] 1.021 (1.003-1.030) 05/22/17 05:30 Urine Protein <15 mg/dl mg/dL (Negative) 05/22/17 05:30 Urine Glucose (UA) Neg mg/dL (Negative) 05/22/17 05:30 Urine Ketones Neg mg/dL (Negative) 05/22/17 05:30 Urine Blood Lg (Negative) 05/22/17 05:30 Urine Nitrite Neg (Negative) 05/22/17 05:30 Urine Bilirubin Neg (Negative) 05/22/17 05:30 Urine Urobilinogen < 2.0 mg/dL (<2.0) 05/22/17 05:30 Ur Leukocyte Esterase Neg (Negative) 05/22/17 05:30 Urine WBC (Auto) 2.0 /HPF (0.0-6.0) 05/22/17 05:30 Urine RBC (Auto) 116.0 /HPF (0.0-6.0) 05/22/17 05:30 U Epithel Cells (Auto) 1.0 /HPF (0-13.0) 05/22/17 05:30 Urine Bacteria (Auto) 1+ /HPF (Negative) 05/22/17 05:30 Urine Mucus Few /HPF 05/22/17 05:30 - Imaging and Cardiology Chest x-ray: image reviewed (Unremarkable ) CT Scan - head: image reviewed (Unremarkable ) MRI - head: image reviewed (Unremarkable ) Assessment and Plan Assessment and plan: Patient is a 36 -year-old female with past medical history of hypertension who presents to emergency department for complaining of midsternal chest pain and headache. Patient stated that initial it started with left side headache 4 days ago but last night her headache got worst to the point she couldn't sleep. She got worried and comes to the emergency department. While in the ED waiting to be seen patient developed midsternal chest pain. Chest Pain We will admit to telemetry floor. EKG normal sinus no ST elevation or T-wave inversion. Negative cardiac enzyme Start on aspirin Nitroglycerin when necessary Morphine ordered for pain Stress test ordered. Hypertension emergency Optimized antihypertensive medication and started on Norvasc. IV hydralazine for SBP>160 Closely monitor blood pressure Transient Ischemic Attack. CT of the head no acute intracranial abnormality Unremarkable MRI VL carotid artery duplex no evidence of stenosis Physical therapy evaluation Headache CT of the head no acute intracranial abnormality Unremarkable MRI Pain control Supportive care Hypokalemia Replaced Closely monitor Electrolytes Tobacco use Smoking cessation counseling done. Patient was strongly advised to quit DVT prophylaxis Heparin Advance Directives: Yes VTE prophylaxis?: Chemical Contraindication Mechanical VTE Prophylaxis: Treatment Not Indicated Plan of care discussed with patient/family: Yes <TIFFANY FULLER - Last Filed: 05/23/17 06:47> History of Present Illness Date of admission: 05/22/17 10:12 Medications and Allergies Active Meds: Active Medications Acetaminophen (Tylenol) 650 mg PO Q4H PRN PRN Reason: Pain MILD(1-3)/Fever >100.5/ADRIAN Aspirin (Baby Aspirin) 81 mg PO QDAY [facility] Atenolol (Tenormin) 25 mg PO BID [facility] Last Admin: 05/22/17 22:07 Dose: 25 mg Bisacodyl (Dulcolax) 10 mg PA QDAY PRN PRN Reason: Constipation unrelieved by MOM Enoxaparin Sodium (Lovenox) 40 mg SUB-Q QDAY SUNITHA Hydralazine HCl (Apresoline) 20 mg IV Q4H PRN PRN Reason: Blood Pressure Last Admin: 05/22/17 13:02 Dose: 20 mg Hydralazine HCl (Apresoline) 50 mg PO TID SUNITHA Last Admin: 05/22/17 22:08 Dose: 50 mg Magnesium Hydroxide (Milk Of Magnesia) 30 ml PO Q4H PRN PRN Reason: Constipation Morphine Sulfate (Morphine) 2 mg IV Q4H PRN PRN Reason: Pain, Moderate (4-6) Last Admin: 05/23/17 03:30 Dose: 2 mg Nitroglycerin (Nitrostat) 0.4 mg SL .Q5MIN PRN PRN Reason: Chest Pain Exam - Constitutional Vitals: Temp Pulse Resp BP Pulse Ox 98.4 F 69 18 137/90 100 05/23/17 05:10 05/23/17 05:10 05/23/17 05:10 05/23/17 05:10 05/23/17 05:10 Results - Labs CBC & Chem 7: 05/23/17 04:49 05/23/17 04:49 Labs: Laboratory Last Values WBC 7.6 K/mm3 (4.5-11.0) 05/23/17 04:49 RBC 3.85 M/mm3 (3.65-5.03) 05/23/17 04:49 Hgb 11.9 gm/dl (10.1-14.3) 05/23/17 04:49 Hct 35.8 % (30.3-42.9) 05/23/17 04:49 MCV 93 fl (79-97) 05/23/17 04:49 MCH 31 pg (28-32) 05/23/17 04:49 MCHC 33 % (30-34) 05/23/17 04:49 RDW 13.8 % (13.2-15.2) 05/23/17 04:49 Plt Count 297 K/mm3 (140-440) 05/23/17 04:49 Lymph % (Auto) 41.3 % (13.4-35.0) H 05/23/17 04:49 [place] % (Auto) 9.3 % (0.0-7.3) H 05/23/17 04:49 Eos % (Auto) 2.4 % (0.0-4.3) 05/23/17 04:49 Baso % (Auto) 0.6 % (0.0-1.8) 05/23/17 04:49 Lymph # 3.1 K/mm3 (1.2-5.4) 05/23/17 04:49 [place] # 0.7 K/mm3 (0.0-0.8) 05/23/17 04:49 Eos # 0.2 K/mm3 (0.0-0.4) 05/23/17 04:49 Baso # 0.0 K/mm3 (0.0-0.1) 05/23/17 04:49 Seg Neutrophils % 46.4 % (40.0-70.0) 05/23/17 04:49 Seg Neutrophils # 3.5 K/mm3 (1.8-7.7) 05/23/17 04:49 Sodium 140 mmol/L (137-145) 05/23/17 04:49 Potassium 3.9 mmol/L (3.6-5.0) 05/23/17 04:49 Chloride 103.0 mmol/L (98-107) 05/23/17 04:49 Carbon Dioxide 22 mmol/L (22-30) 05/23/17 04:49 Anion Gap 19 mmol/L 05/23/17 04:49 BUN 20 mg/dL (7-17) H 05/23/17 04:49 Creatinine 0.7 mg/dL (0.7-1.2) 05/23/17 04:49 Estimated GFR > 60 ml/min 05/23/17 04:49 BUN/Creatinine Ratio 29 % 05/23/17 04:49 Glucose 99 mg/dL (65-100) 05/23/17 04:49 Calcium 8.2 mg/dL (8.4-10.2) L 05/23/17 04:49 Troponin T < 0.010 ng/mL (0.00-0.029) 05/22/17 08:46 Urine Color Yellow (Yellow) 05/22/17 05:30 Urine Turbidity Clear (Clear) 05/22/17 05:30 Urine pH 6.0 (5.0-7.0) 05/22/17 05:30 Ur Specific [place] 1.021 (1.003-1.030) 05/22/17 05:30 Urine Protein <15 mg/dl mg/dL (Negative) 05/22/17 05:30 Urine Glucose (UA) Neg mg/dL (Negative) 05/22/17 05:30 Urine Ketones Neg mg/dL (Negative) 05/22/17 05:30 Urine Blood Lg (Negative) 05/22/17 05:30 Urine Nitrite Neg (Negative) 05/22/17 05:30 Urine Bilirubin Neg (Negative) 05/22/17 05:30 Urine Urobilinogen < 2.0 mg/dL (<2.0) 05/22/17 05:30 Ur Leukocyte Esterase Neg (Negative) 05/22/17 05:30 Urine WBC (Auto) 2.0 /HPF (0.0-6.0) 05/22/17 05:30 Urine RBC (Auto) 116.0 /HPF (0.0-6.0) 05/22/17 05:30 U Epithel Cells (Auto) 1.0 /HPF (0-13.0) 05/22/17 05:30 Urine Bacteria (Auto) 1+ /HPF (Negative) 05/22/17 05:30 Urine Mucus Few /HPF 05/22/17 05:30 Assessment and Plan Assessment and plan: I saw and evaluated the patient. I agree with the findings and the plan of care as documented in the Nurse Practitioner's~note, with the following corrections and additions. Patient presents with chest pain, left sided numbness. For cardio and neuro workup. She has hypertensive emergency, started on anti-hypertensives. She ran out of meds 1 month ago.
[2017-05-22] MEDS ORDERED: TENORMIN PO SCH (11:00)
[2017-05-22] MEDS ORDERED: TENORMIN ONE (11:48)
[2017-05-22] MEDS ORDERED: REGLAN ONE (11:48)
[2017-05-22] MEDS ORDERED: BABY ASPIRIN ONE (11:48)
[2017-05-22] MEDS ORDERED: BENADRYL ONE (11:50)
[2017-05-22] MEDS ORDERED: LEXISCAN IV ONE ×2 (12:31)
[2017-05-22] MEDS ORDERED: APRESOLINE ONE (13:01)
--- NOTE | 2017-05-22 14:18 | Magnetic Resonance Report ---
MRI OF THE BRAIN WITHOUT CONTRAST: HISTORY: TIA PROCEDURE: Multiplanar, multisequence MR imaging of the brain without IV contrast was performed. FINDINGS: Compared to the CT head without contrast dated 05/22/17. The brain parenchyma signal intensity and its ann white interface are within normal limits on all sequences. No evidence for acute ischemia, hemorrhage or mass. No chronic infarct or extra-axial fluid collection. The midline structures are central. The basal cisterns are patent. Normal ventricular size. The orbital cavities and sella turcica demonstrate no abnormality. The visualized paranasal sinuses and mastoid air cells are well aerated. IMPRESSION: Unremarkable non-enhanced MRI of the brain.
[2017-05-22] MEDS ORDERED: MORPHINE ONE (14:47)
[2017-05-22] MEDS: TENORMIN PO SCH ×2 (14:57→22:07)
[2017-05-22] MEDS: MORPHINE IV PRN (15:28)
[2017-05-22] MEDS ORDERED: K-DUR PO ONE (17:00)
[2017-05-22] MEDS: APRESOLINE PO SCH (22:08)
--- NOTE | 2017-05-23 03:08 | Treadmill Report ---
ORDERING PHYSICIAN: Dr. Sloan. INDICATION: Chest pain. FINDINGS: There is no scintigraphic evidence of myocardial ischemia. The left ventricle is normal in size and systolic function, left ventricular ejection fraction is measured at 63%. Normal wall motion and wall thickening is noted on gated imaging. CONCLUSION: Normal perfusion scan. JOB# [id number] IVAN/NTS
[2017-05-23] MEDS: MORPHINE IV PRN ×2 (03:30→11:49)
[2017-05-23 06:11] LABS: Basophils % (Auto) 0.6 % (0.0-1.8); Eosinophils % (Auto) 2.4 % (0.0-4.3); Hematocrit 35.8 % (30.3-42.9); Hemoglobin 11.9 gm/dl (10.1-14.3); Mean Corpuscular HGB Conc 33 % (30-34); Mean Corpuscular Hemoglobin 31 pg (28-32); Mean Corpuscular Volume 93 fl (79-97); Platelet Count 297 K/mm3 (140-440); Red Blood Count 3.85 M/mm3 (3.65-5.03); Red Cell Distribution Width 13.8 % (13.2-15.2); White Blood Count 7.6 K/mm3 (4.5-11.0)
[2017-05-23 06:33] LABS: Anion Gap 19 mmol/L; BUN/Creatinine Ratio 29; Blood Urea Nitrogen 20 mg/dL (7-17); Calcium 8.2 mg/dL (8.4-10.2); Carbon Dioxide 22 mmol/L (22-30); Glucose 99 mg/dL (65-100); Potassium 3.9 mmol/L (3.6-5.0); Sodium 140 mmol/L (137-145)
[2017-05-23] MEDS ORDERED: NORVASC PO SCH (10:00)
[2017-05-23] MEDS ORDERED: LOVENOX SUB-Q SCH (10:00)
[2017-05-23] MEDS ORDERED: BABY ASPIRIN PO SCH (10:14)
[2017-05-23] MEDS: TENORMIN PO SCH (10:32)
[2017-05-23] MEDS: APRESOLINE PO SCH (10:32)
[2017-05-23 12:31] VITALS: BP 130/89
--- NOTE | 2017-05-23 13:38 | Discharge Summary ---
Providers - Providers Date of Admission: 05/22/17 10:12 Date of discharge: 05/23/17 Attending physician: REKHA VO 05/22/17 Consult to Cardiac Rehabilitation [CONS] Routine Reason For Exam: Phase 1 05/22/17 15:51 Physical Therapy Evaluation and Treat [CONS] Routine Comment: Reason For Exam: TIA Primary care physician: OPERATIONS ADMINISTRATOR Hospitalization Condition: Good Pertinent studies: Head CT Brain MRI Carotid doppler Stress test CXR Hospital course: Patient is a 36 -year-old female with past medical history of hypertension who presents to emergency department for complaining of midsternal chest pain and headache. Patient stated that initial it started with left side headache 4 days ago but last night her headache got worst to the point she couldn't sleep. She got worried and came to the emergency department. While in the ED waiting patient also developed midsternal chest pain. Discharge diagnosis and management: /Chest Pain likely from GERD EKG normal sinus no ST elevation or T-wave inversion. Negative cardiac enzyme Started on aspirin, Nitroglycerin when necessary Stress test ordered and that was normal. /Hypertensive emergency Optimized antihypertensive medication and started on Norvasc. Placed on IV hydralazine for SBP>160 Closely monitored blood pressure /Transient Ischemic Attack - ruled out Suspected on admission CT of the head no acute intracranial abnormality Unremarkable MRI b/l carotid artery duplex showed no evidence of stenosis /Headache likely from uncontrolled BP CT of the head no acute intracranial abnormality Unremarkable MRI cont Pain control, Supportive care /Hypokalemia Replaced, Closely monitored Electrolytes /Tobacco use Smoking cessation counseling done. Patient was strongly advised to quit Disposition: DC-01 TO HOME OR SELFCARE Time spent for discharge: 32 minutes Core Measure Documentation - Palliative Care Palliative Care/ Comfort Measures: Not Applicable - Core Measures Any of the following diagnoses?: none Exam - Constitutional Vitals: Temp Pulse Resp BP Pulse Ox 98.2 F 69 18 130/89 97 05/23/17 12:13 05/23/17 12:39 05/23/17 12:13 05/23/17 12:13 05/23/17 12:13 General appearance: Present: no acute distress, well-nourished - EENT Eyes: Present: PERRL ENT: hearing intact, clear oral mucosa - Neck Neck: Present: supple, normal ROM - Respiratory Respiratory effort: normal Respiratory: bilateral: CTA - Cardiovascular Heart Sounds: Present: S1 & S2. Absent: rub, click - Extremities Extremities: pulses symmetrical, No edema Peripheral Pulses: within normal limits - Abdominal General gastrointestinal: Present: soft, non-tender, non-distended, normal bowel sounds - Integumentary Integumentary: Present: clear, warm, dry - Musculoskeletal Musculoskeletal: gait normal, strength equal bilaterally - Psychiatric Psychiatric: appropriate mood/affect, intact judgment & insight - Neurologic Neurologic: CNII-XII intact, moves all extremities Plan Activity: advance as tolerated Weight Bearing Status: Weight Bear as Tolerated Diet: low fat, low salt Follow up with: [facility] [Provider Group] - 7 Days PRIMARY CARE,MD [Primary Care Provider] - 3-5 Days Prescriptions: Atenolol [Tenormin] 25 mg PO BID #120 tablet hydrALAZINE [Apresoline TAB] 50 mg PO TID #90 tablet Pantoprazole [Protonix] 40 mg PO QDAY #30 tablet
--- NOTE | 2017-05-27 07:17 | Vascular Lab Report ---
CAROTID DUPLEX STUDY: RIGHT PSVEDV CCA PROX:[id number] CCA DIST:8427 ICA PROX:6723 ICA MID:6026 ICA DIST:8937 ECA: 71 VERT: 36 18 LEFT PSVEDV CCA PROX:[id number] CCA DIST:7723 ICA PROX:8922 ICA MID:5126 ICA DIST:8032 ECA: 52 VERT: 47 20 REASON FOR EXAM: TIA. COMMENTS ON THE RIGHT: Doppler frequency analysis is consistent with 16 to 49 percent diameter reduction of the internal carotid artery. Minimal amount of plaque is seen. The common carotid artery is patent. The external carotid artery is patent. The vertebral artery has antegrade flow. COMMENTS ON THE LEFT: Doppler frequency analysis is consistent with 16 to 49 percent diameter reduction of the internal carotid artery. Minimal amount of plaque is seen. The common carotid artery is patent. The external carotid artery is patent. The vertebral artery has antegrade flow. IMPRESSION: Less than 50% diameter reduction in the internal carotid arteries bilaterally. Consider repeat carotid artery duplex in 12 months.
== END 2017-05-23 15:00 | disposition home or self-care (01) | DRG 392 ==
LOC: ED 02:27 → 4A 10:12
PROVIDERS: ADMIT Internal Medicine; ATTEND Internal Medicine
DX: K21.9 Gastro-esophageal reflux disease without esophagitis (principal); I16.1 Hypertensive emergency; E87.6 Hypokalemia; F17.200 Nicotine dependence, unspecified, uncomplicated; I10 Essential (primary) hypertension; F41.9 Anxiety disorder, unspecified; Z79.899 Other long term (current) drug therapy; Z98.51 Tubal ligation status; Z82.49 Family history of ischemic heart disease and other diseases of the circulatory system; Z71.6 Tobacco abuse counseling
CPT/HCPCS: 36415; 70450; 70551; 71020; 78452; 80048; 81001; 84484; 85025; 93005; 93010; 93017; 93880; 96372; 96374; 96375; 99285; 99406; A9502; J0360; J1200; J1650; J2270; J2765; J2785

== ENCOUNTER 2019-03-18 08:58 | Emergency (ER) | payer MEDICAID ==
[2019-03-18 09:17] VITALS: BP 174/105
--- NOTE | 2019-03-18 09:30 | Emergency Department Report ---
ED Back Pain/Injury HPI - General Chief Complaint: Extremity Injury, Lower Stated Complaint: INJURED ANKLE Time Seen by Provider: 03/18/19 09:19 Source: patient Mode of arrival: Ambulatory Limitations: No Limitations - History of Present Illness Initial Comments: 38 yo comes to ER sp MARY this AM while walking in her front yard. Ambulatory to ER. Complaining right ankle pain. Pain worse with movement. 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 Complaint: other -: Sudden Similar Symptoms Previously: No Place: home Severity: mild Quality: aching Consistency: constant Improves With: immobilization Worsens With: movement Context: fall Associated Symptoms: denies other symptoms - Related Data Previous Rx's Medication Instructions Recorded Last Taken Type Atenolol [Tenormin] 25 mg PO BID #120 tablet 05/23/17 Unknown Rx Ibuprofen [Motrin] 800 mg PO Q8HR PRN #30 tablet 03/18/19 Unknown Rx Allergies Allergy/AdvReac Type Severity Reaction Status Date / Time No Known Allergies Allergy Verified 12/26/13 13:55 ED Review of Systems ROS: Stated complaint: INJURED ANKLE Other details as noted in HPI Comment: All other systems reviewed and negative ED Past Medical Hx - Past Medical History Medical history: hypertension Surgical history: Psychiatric history: no pertinent history PRIVACY SPECIALIST history: no PRIVACY SPECIALIST history LMP comments: week(s) (3) Family history: no significant family history - Social History Smoking Status: Never Smoker Alcohol use: rarely Drug use: none ED Back Pain Physical Exam - Exam General: Vital signs noted. No distress. Alert and acting appropriately. Back/Abdomen: No Abdominal Tenderness, No Perithoracic Tenderness, No Perilumbar Tenderness, No Sacroiliac Tenderness, No Flank Tenderness, No Straight Leg Raise Pain Neuro: Yes Normal Sensation, Yes Normal DTR's, Yes Normal Gait, No Motor Weakness ED Course Vital Signs 03/18/19 09:16 Temperature 97.8 F Pulse Rate 70 Respiratory 16 Rate Blood Pressure 174/105 [Left] O2 Sat by Pulse 100 Oximetry - Reevaluation(s) Reevaluation #1: 03/18/19 09:38 home meds: loratadine, norvasc, HCTZ and atenolol. Pt reports compliance Ed Back Pain Tests - Tests Tests: Normal X Rays ED Medical Decision Making - Radiology Data Radiology results: report reviewed, image reviewed - Medical Decision Making xray neg for fx juana for comfort neurovasc intact dc home with dc plan of care and ortho follow up. pt instructed to monitor her blood pressure for it was high today; in part likely due to pain Vital Signs 03/18/19 09:16 Temperature 97.8 F Pulse Rate 70 Respiratory 16 Rate Blood Pressure 174/105 [Left] O2 Sat by Pulse 100 Oximetry - Differential Diagnosis ro fx Critical care attestation.: If time is entered above; I have spent that time in minutes in the direct care of this critically ill patient, excluding procedure time. ED Disposition Clinical Impression: Ankle sprain, HTN (hypertension) Disposition: DC-01 TO HOME OR SELFCARE Is pt being admited?: No Does the pt Need Aspirin: No Condition: Stable Instructions: Hypertension (ED) Additional Instructions: ice rest elevate OTC tylenol can be used with motrin for pain follow up with Dr Naidu next week if pain persists take your BP meds and follow up with your PCP if it remains high Prescriptions: Ibuprofen [Motrin] 800 mg PO Q8HR PRN #30 tablet PRN Reason: Pain, Moderate (4-6) Referrals: SANCHEZ NAIDU MD [Staff Physician] - 3-5 Days Forms: Work/School Release Form(ED) Time of Disposition: 09:37
[2019-03-18] MEDS ORDERED: IBUPROFEN 800 MG TAB PO ONE (09:32)
--- NOTE | 2019-03-18 09:52 | XRay Report ---
Right ankle, 2 views INDICATION: ankle pain. Swelling after fall this morning. COMPARISON: None. IMPRESSION: No acute osseous or soft tissue abnormality. No significant DJD. Signer Name: Noel Milton Jr, MD Signed: 03/18/2019 9:48 AM Workstation Name: [id number]
== END 2019-03-18 10:20 | disposition home or self-care (01) ==
LOC: ED 08:58
DX: S93.401A Sprain of unspecified ligament of right ankle, initial encounter (principal); I10 Essential (primary) hypertension; Z79.899 Other long term (current) drug therapy; W01.198A Fall on same level from slipping, tripping and stumbling with subsequent striking against other object, initial encounter; Y93.89 Activity, other specified; Y92.096 Garden or yard of other non-institutional residence as the place of occurrence of the external cause; Y99.8 Other external cause status
CPT/HCPCS: 99283